=== PATIENT | female | born 1995 | race Two or more races ===

== ENCOUNTER 2024-08-12 14:09 | Outpatient (CLI) | payer OTHER | END 2024-08-12 14:10 | disposition home or self-care (01) | LOC: PRENATAL 14:09 | PROVIDERS: ATTEND Obstetrics & Gynecology Maternal & Fetal Medicine | DX: O44.00 Complete placenta previa NOS or without hemorrhage, unspecified trimester (principal); Z3A.22 22 weeks gestation of pregnancy ==

== ENCOUNTER → 2024-10-23 10:06 | Outpatient (CLI) | payer OTHER | END | disposition home or self-care (01) | LOC: PRENATAL 10:06 | PROVIDERS: ATTEND Obstetrics & Gynecology Maternal & Fetal Medicine | DX: O26.849 Uterine size-date discrepancy, unspecified trimester (principal); O36.8199 Decreased fetal movements, unspecified trimester, other fetus; O24.419 Gestational diabetes mellitus in pregnancy, unspecified control; O28.3 Abnormal ultrasonic finding on antenatal screening of mother; Z3A.32 32 weeks gestation of pregnancy ==

== ENCOUNTER 2024-11-21 09:07 | Outpatient (CLI) | payer OTHER | END 2024-11-21 09:13 | disposition home or self-care (01) | LOC: PRENATAL 09:07 | PROVIDERS: ATTEND Obstetrics & Gynecology Maternal & Fetal Medicine | DX: O26.849 Uterine size-date discrepancy, unspecified trimester (principal); O36.8199 Decreased fetal movements, unspecified trimester, other fetus; O24.419 Gestational diabetes mellitus in pregnancy, unspecified control; O28.3 Abnormal ultrasonic finding on antenatal screening of mother; Z3A.36 36 weeks gestation of pregnancy ==